=== PATIENT | male | born 1955 | race Caucasian/White ===

== ENCOUNTER 2020-04-05 06:28 | Emergency (ER) | payer MEDICARE, SELFPAY ==
--- NOTE | ~2020-04-05 | XR_ITS ---
EXAMINATION: XR hand LT min 3V DATE: 04/05/2020 06:57 INDICATION: 3-barbed fishhook in left hand TECHNIQUE: Posteroanterior, oblique and lateral views of the left hand were obtained. COMPARISON: None. FINDINGS: There are 2 metallic barbs from a likely treble fish foci which are located in the soft tissues betwe en the first and second metacarpals. Mallet finger deformity at the fifth digit. No acute fracture. 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 IMPRESSION: 1. 2 remaining fishhook barbs in the soft tissues between the left first and second metacarpals. No a cute osseous abnormality. Reviewed, dictated and finalized at location A. IMPRESSION: 1. 2 remaining fishhook barbs in the soft tissues between the left first and se cond metacarpals. No acute osseous abnormality.
[2020-04-05 06:32] VITALS: BP 146/89; PULSE 65; RESP 15; TEMP 36.7; O2SAT 99
--- NOTE | 2020-04-05 07:33 | ED.UPPEXIN ---
HPI - Extremity Injury (Upper) General Chief Complaint: Extremity Injury, Upper Stated Complaint: Hook in hand Time Seen by Provider: 04/05/20 07:29 History of Present Illness HPI narrative: Patient presents with 2 fishhooks in his right hand. He was fishing this morning. He was able to cut off the protruding metal, but unable to extract the scott. He says his pain is minimal, and his last tetanus was 2 and half years ago. He does not have any medical issues. He was in the [employer] during [place]. complaint: injury to: right and hand Onset (ago): hour(s) Other Extremity Injury: Right: hand Other injuries: none Handedness: right Place: outdoors Severity: mild Exacerbating factors: none Context: sports-related injury and other Associated symptoms: denies other symptoms Related Data Home Medications Medication Instructions Recorded Confirmed tamsulosin mg PO 04/05/20 Allergies Allergy/AdvReac Type Severity Reaction Status Date / Time No Known Allergies Allergy Unverified 04/05/20 06:34 Review of Systems Review of Systems: Narrative: CONSTITUTIONAL: Denies fever, chills, or sweats. EYES: Denies visual changes, redness, or discharge. ENT: Denies rhinorrhea, congestion, sore throat, or otalgia. CARDIOVASCULAR: Denies chest pain, palpitations, or edema. RESPIRATORY: Denies cough or dyspnea. GASTROINTESTINAL: Denies abdominal pain, nausea, vomiting, or diarrhea. GENITOURINARY: Denies dysuria or hematuria. SKIN: Denies rash or itching. MUSCULOSKELETAL: Denies back pain, joint pain, or myalgia. NEUROLOGIC: Denies headache, numbness, or weakness. PSYCHIATRIC: Denies anxiety or depression. PMFSH Past Medical History Medical History (Updated 04/05/20 @ 08:46 by Apurva Verma MD) Foreign body (FB) in soft tissue Social History Social History (Updated 04/05/20 @ 08:47 by Apurva Verma MD) Smoking status: Never smoker Alcohol intake: current Substance use: never Exam Narrative: Exam Narrative: GENERAL: Well-appearing, well-nourished, and in no acute distress. HEAD: Normocephalic, atraumatic. EYES: PERRLA and EOMI. ENT: Nares clear, no rhinorrhea or epistaxis. Mucous membranes moist. NECK: Supple. CHEST: Clear to auscultation. No respiratory distress. HEART: Regular rate and rhythm. No murmur heard. Normal peripheral pulses. ABDOMEN: Soft, nontender, nondistended, normal active bowel sounds. EXTREMITIES: Normal range of motion. No edema. Right hand has protrusion of metal fishhooks between the thumb and first finger, no bleeding no surrounding erythema no tenderness. SKIN: Warm, dry, no rash. NEURO: No focal deficits. Alert and oriented x3. PSYCH: Normal mood and affect. Course Vital Signs Vital signs: Vital Signs Temperature 98.1 F 04/05/20 06:32 Pulse Rate 65 04/05/20 06:32 Respiratory Rate 15 04/05/20 06:32 Blood Pressure 146/89 H 04/05/20 06:32 Pulse Oximetry 99 04/05/20 06:32 Temperature 98.1 F 04/05/20 06:32 Pulse Rate 65 04/05/20 06:32 Respiratory Rate 15 04/05/20 06:32 Blood Pressure 146/89 H 04/05/20 06:32 Pulse Oximetry 99 04/05/20 06:32 Procedures Foreign Body Removal Foreign Body #1: Foreign Body Removal Date: 04/05/20 Foreign Body Removal Time: 08:49 Site: left and hand Description of foreign body: fish hook Sedation/Analgesia: none Technique: removal with forceps Confirmed by:: direct visualization Complications: none Post-procedure exam: awake, alert Neurovascular: normal distal pulse and distal motor function normal Foreign Body Removal Narrative: Cut on fishhook easily removed because the scott had protruded from the skin. Foreign Body #2: Foreign Body Removal Date: 04/05/20 Foreign Body Removal Time: 08:50 Site: left and hand Description of foreign body: fish hook Sedation/Analgesia: none Technique: removal with forceps and incis
[2020-04-05 09:20] VITALS: BP 143/67; PULSE 65; RESP 16; O2SAT 99
== END 2020-04-05 09:21 | disposition home or self-care (01) ==
LOC: ANHED 07:40
PROVIDERS: Emergency Provider Emergency Medicine; PCP Internal Medicine Infectious Disease
DX: S60.552A Superficial foreign body of left hand, initial encounter (principal); W45.8XXA Other foreign body or object entering through skin, initial encounter
CPT/HCPCS: 10120; 73130; 99283